=== PATIENT | male | born 1940 | race Caucasian/White ===

== ENCOUNTER 2020-07-26 13:14 | Emergency (ER) | payer MEDICARE, OTHER ==
[~2020-07-26] VITALS: Ht 177.8 cm; Wt 80.5 kg
[~2020-07-26 13:14] MED LIST: FAMO-1 PO; FLO110IN IH; GEMF600T89 PO; GUAI600T PO; MAGN250T28 PO; MULT-785 PO; OMEG300C2 PO; OXYB15TA19 PO; PRAV40TA65 PO
[2020-07-26 13:56] VITALS: BP 157/80
--- NOTE | 2020-07-26 16:04 | NUR ---
Attempted to call patient at listed phone number due to 3rd 'not in lobby'. No answer. Dr. Sanchez aware of LWOB.
== END 2020-07-26 16:05 | disposition left against medical advice (07) ==
LOC: ER 13:15
DX: M54.9 Dorsalgia, unspecified (principal); Z53.21 Procedure and treatment not carried out due to patient leaving prior to being seen by health care provider

== ENCOUNTER 2021-08-18 09:38 | Outpatient (CLI) | payer MEDICARE, OTHER | END 2021-08-18 23:59 | disposition home or self-care (01) | LOC: CARD DIAG 09:38 | PROVIDERS: ATTEND Internal Medicine Cardiovascular Disease | DX: I08.0 Rheumatic disorders of both mitral and aortic valves (principal) | CPT/HCPCS: 93306 ==

== ENCOUNTER 2022-01-28 08:49 | Day surgery (SDC) | payer MEDICARE, OTHER ==
[~2022-01-28] VITALS: Ht 175.3 cm; Wt 75.5 kg
[2022-01-28 09:00] VITALS: BP 126/78
[2022-01-28] MEDS ORDERED: FENTANYL CITRATE/PF 50 MCG/1 ML VIAL ONE (09:07)
[2022-01-28] MEDS ORDERED: MIDAZolam 1 MG/ML 5ML VIAL ONE (09:07)
[2022-01-28] MEDS ORDERED: ASPI-611 PO (09:17)
[2022-01-28] MEDS ORDERED: ASCO500C17 PO (09:18)
[2022-01-28] MEDS ORDERED: RABE20TA18 PO (09:18)
[2022-01-28] MEDS ORDERED: CHOL500049 PO (09:19)
[2022-01-28 10:40] VITALS: BP 143/83
[2022-01-28 10:50] VITALS: BP 132/73
[2022-01-28 11:00] VITALS: BP 136/80
[2022-01-28 11:10] VITALS: BP 145/66
== END 2022-01-28 11:15 | disposition home or self-care (01) ==
LOC: GI LAB 08:49
PROVIDERS: ATTEND Internal Medicine Gastroenterology
DX: K29.70 Gastritis, unspecified, without bleeding (principal); K21.9 Gastro-esophageal reflux disease without esophagitis; K22.70 Barrett's esophagus without dysplasia
CPT/HCPCS: 43239; G0500; J2250; J3010; J7030; Z7512; 99152; A4620